=== PATIENT | female | born 1975 | race African-American/Black ===

== ENCOUNTER 2024-08-24 17:06 | Emergency (ER) | payer OTHER ==
[~2024-08-24] VITALS: Ht 167.6 cm; Wt 70.0 kg
[2024-08-24 17:14] VITALS: TEMP 36.7; O2SAT 100
[2024-08-24 19:50] LABS: HEMATOCRIT. 38.6 % (36.0-48.0); HEMOGLOBIN. 12.4 g/dL (12.0-16.0); MEAN CORPUSCULAR HEMOGLOBIN 27.8 pg (28.0-32.0); MEAN CORPUSCULAR HGB CONC 32.1 g/dL (31.0-37.0); MEAN CORPUSCULAR VOLUME 86.5 fL (81.0-99.0); RED BLOOD CELL COUNT 4.46 mill/uL (4.2-5.4); RED CELL DISTRIBUTION WIDTH 13.6 % (11.6-14.6)
[2024-08-24 19:54] LABS: DIFFERENTIAL COMMENT 1
[2024-08-24 19:59] LABS: PROTHROMBIN TIME 10.7 sec (9.6-11.0)
[2024-08-24 20:03] LABS: CHLORIDE 105 mEq/L (98-107); POTASSIUM 3.7 mEq/L (3.5-5.1); SODIUM 138 mEq/L (136-145)
[2024-08-24 20:05] LABS: CALCIUM 9.2 mg/dL (8.7-10.4); CARBON DIOXIDE 26 mEq/L (21-32)
[2024-08-24 20:10] LABS: CREATININE 0.8 mg/dL (0.6-1.0); GLUCOSE 99 mg/dL (70-105); UREA NITROGEN BLOOD 9 mg/dL (9-23)
[2024-08-24 20:12] LABS: ALANINE AMINOTRANSFERASE 70 IU/L (10-49); ALBUMIN 4.8 g/dL (3.2-4.8); ASPARTATE AMINOTRANSFERASE 175 IU/L (<34); BILIRUBIN DIRECT 0.2 mg/dL (<=3.0); BILIRUBIN TOTAL 0.7 mg/dL (0.1-1.0); PROTEIN TOTAL 7.6 g/dL (6.0-8.3)
[2024-08-24 20:17] VITALS: TEMP 98.1
[2024-08-24] MEDS: ACETAMINOPHEN 325MG TABLET PO ONE (20:17)
[2024-08-24 20:18] VITALS: BP 107/62; PULSE 86; RESP 18
[2024-08-24] MEDS: KETOROLAC 30MG/ML VIAL IM ONE (20:18)
[2024-08-24 20:36] LABS: TROPONIN I HIGH SENSITIVITY < 4 ng/L (3.0-34)
[2024-08-24 20:37] LABS: MEAN PLATELET VOLUME 9.2 fl (7.4-10.4); PLATELET 276 x1000/uL (130-400)
[2024-08-24 20:43] LABS: PLATELET ESTIMATE NORMAL
[2024-08-24] MEDS ORDERED: IBUP-2029 MT (21:01)
== END 2024-08-24 21:28 | disposition home or self-care (01) ==
LOC: ER 17:06
DX: M79.7 Fibromyalgia (principal); R07.89 Other chest pain; G47.30 Sleep apnea, unspecified; Z88.0 Allergy status to penicillin
CPT/HCPCS: 99285; 71045; 80076; 80048; 83690; 85025; 85610; 84484; 36415; 93005; 96372; J1885